=== PATIENT | female | born 1995 | race Caucasian/White ===

== ENCOUNTER 2017-04-18 07:53 | Emergency (ER) | payer OTHER ==
[~2017-04-18] VITALS: Ht 167.6 cm; Wt 50.0 kg
--- NOTE | 2017-04-18 08:01 | EMERGENCY ROOM VISIT NOTE ---
History Report prepared by Richard: eClio Martins Under the Supervision of: Dr. Santi Allred M.D. First contact with patient: 07:54 Stated Complaint: ETOH History of Present Illness This HPI is limited secondary to the intoxication of the patient. The patient is a 21 year old female who presents to the Emergency Room for alcohol and substance intoxication. Per EMS the patient was found on [address] near the [employer] [place] this morning, but she states that she lives near [facility]. EMS state that she admits to doing cocaine, marijuana, and alcohol. She was found unconscious this morning by students who were walking to class. Source of History: EMS Onset: This morning. Position: other ([place]/Intox) Quality: other (Drug/EtOH intox) Review of Systems ROS Limited secondary to intoxication. Current/Historical Medications Scheduled PRN Alprazolam (Xanax), 0.5 MG PO Q6H PRN for Anxiety Allergies Coded Allergies: No Known Allergies (Unverified , 04/18/17) Physical Exam Vital Signs Date Time Temp Pulse Resp B/P (MAP) Pulse Ox O2 Delivery O2 Flow Rate FiO2 04/18/17 16:29 36.7 106 26 118/74 99 04/18/17 16:01 118/74 04/18/17 15:53 106 26 04/18/17 15:23 103 22 04/18/17 15:18 102 23 04/18/17 15:01 101/62 04/18/17 14:48 96 20 04/18/17 14:18 85 18 99 04/18/17 14:13 83 18 99 04/18/17 14:01 98/62 04/18/17 13:43 80 16 98 04/18/17 13:28 100/67 04/18/17 13:27 73 16 100/67 96 Room Air 04/18/17 13:13 83 18 99 04/18/17 12:43 82 18 97 04/18/17 12:41 79 04/18/17 12:16 91/52 04/18/17 12:13 81 18 95 04/18/17 12:08 81 18 91/52 96 04/18/17 11:38 76 18 100 04/18/17 11:33 73 15 100 04/18/17 11:28 92 14 97 04/18/17 11:23 99 15 99 2/15/18 11:13 130 18 04/18/17 11:08 130 19 04/18/17 11:03 131 27 04/18/17 10:58 127 27 04/18/17 10:52 120 18 136/98 98 Room Air 04/18/17 10:49 136/93 04/18/17 09:53 137 22 04/18/17 09:48 133 16 04/18/17 09:43 139 23 04/18/17 09:38 133 15 04/18/17 09:33 143 15 04/18/17 09:28 136 19 04/18/17 09:23 145 16 04/18/17 09:18 142 18 04/18/17 09:13 144 23 04/18/17 09:08 151 19 04/18/17 09:03 155 25 04/18/17 08:58 146 30 04/18/17 08:53 144 17 04/18/17 08:48 147 23 98 04/18/17 08:43 150 18 97 04/18/17 08:38 157 23 96 04/18/17 08:33 161 14 04/18/17 08:28 157 13 97 04/18/17 08:23 151 132/83 98 04/18/17 08:03 97 Room Air 04/18/17 08:03 97 Room Air 04/18/17 08:03 36.7 141 24 134/88 97 Room Air 04/18/17 08:03 142 15 100 04/18/17 08:00 140 04/18/17 08:00 134/88 Physical Exam Vital signs reviewed. General: Odor of EtOH in the breath, disheveled 21-year-old female. No signs of trauma. HEENT: Mild scleral injection bilaterally, PERRLA, neck supple, dry mucous membranes. Cardiovascular: Regular rate and rhythm, no extra sounds. Pulmonary: Clear to auscultation bilaterally, normal work of breathing. Abdomen: Soft, nontender, nondistended, positive bowel sounds. Musculoskeletal: Upper and lower extremities atraumatic, no peripheral edema Skin: Warm, dry, no rash. Atraumatic. Neurologic: Patient is currently nonverbal. Medical Decision & Procedures Laboratory Results 04/18/17 08:38 Test 04/18/17 08:38 04/18/17 10:03 Anion Gap 8.0 mmol/L (3-11) Est Creatinine Clear Calc Drug Dose 82.6 ml/min Estimated GFR () 113.5 Estimated GFR (Non- 97.9 BUN/Creatinine Ratio 11.9 (10-20) Calcium Level 8.5 mg/dl (8.5-10.1) Human Chorionic Gonadotropin, Qual NEG (NEG) Ethyl Alcohol mg/dL 285.2 mg/dl (0-3) Urine Opiates Screen NEG (NEG) Urine Methadone, Qualitative NEG (NEG) Urine Barbiturates NEG (NEG) Urine Phencyclidine (PCP) Level NEG (NEG) Ur Amphetamine/Methamphetamine NEG (NEG) MDMA (Ecstasy) Screen NEG (NEG) Urine Benzodiazepines Screen POS (NEG) Urine Cocaine Metabolite NEG (NEG) Urine Marijuana (THC) NEG (NEG) Labs reviewed by ED physician. Medications Administered Medications (Trade) Dose Ordered Sig/Dhruv Route Start Time Stop Time Status Last Admin Dose Admin Haloperidol Lactate (Haldol Inj) 10 mg NOW STAT IM 04/18/17 10:32 04/18/17 10:34 DC 04/18/17 10:50 10 MG Lorazepam (Ativan Inj) 2 mg NOW STAT IM 04/18/17 10:32 04/18/17 10:34 DC 04/18/17 10:51 2 MG Benztropine Mesylate (Cogentin Inj) 2 mg NOW STAT IM 04/18/17 10:32 04/18/17 10:34 DC 04/18/17 10:50 2 MG ED Course 0800: Past medical records reviewed. The patient was evaluated in room A3. A complete history and physical examination was performed. 1032: Ordered Cogentin 2 mg IM, Lorazepam 2 mg IM, Haldol 10 mg IM. 1500: Patient will be signed out to Dr. Torres at change of shift. Medical Decision Differential diagnosis: Etiologies such as alcohol intoxication, toxicologic, infection, hypoglycemia, electrolyte abnormalities, cardiac sources, intracerebral event, neurologic, as well as others were entertained. This is a 21-year-old female who presents emergency department complaining of alcohol intoxication. Patient was found passed out an apartment hallway that was not her own. The patient admitted to doing cocaine and marijuana and a large amount of liquor. The patient has a high alcohol content and is noncooperative in the emergency department she keeps leaving her room. Due to the very high acuity of patients in the emergency department she is risking a catastrophe. I offered to call this patient's parents however she adamantly refused. As she will not cooperate or behave she was given 10 of Haldol and 2 of Cogentin and 2 of Ativan IM. This resulted in the patient sleeping. I will note that the patient was extremely tachycardic and was not cooperative for this evaluation. I strongly recommended that the patient discuss this visit with her parents. I will also note that the patient tested positive for benzos even though she denies being on any medication. Impression Primary Impression: Alcohol use with intoxication Additional Impression: Benzodiazepine abuse Scribe Attestation The scribe's documentation has been prepared under my direction and personally reviewed by me in its entirety. I confirm that the note above accurately reflects all work, treatment, procedures, and medical decision making performed by me. Departure Information Dispostion Still a Patient (Patient will be signed out to Dr. Torres) Problem Qualifiers
[2017-04-18 08:03] VITALS: O2SAT 97; Ht 167.6 cm; Wt 50.0 kg
[2017-04-18 09:11] LABS: CALCIUM 8.5 mg/dl (8.5-10.1); CREATININE 0.85 mg/dl (0.60-1.20); POTASSIUM 3.8 mmol/L (3.5-5.1)
[2017-04-18] MEDS ORDERED: ALPR-411 PO (09:38)
[2017-04-18] MEDS ORDERED: HALOPERIDOL LACTATE 5 MG/ML 1 ML VIAL IM STA (10:32)
[2017-04-18] MEDS ORDERED: LORAZEPAM 2 MG/ML 1 ML VIAL IM STA (10:32)
[2017-04-18] MEDS ORDERED: BENZTROPINE MESYLATE 1 MG/ML 2 ML AMP IM STA (10:32)
[2017-04-18 16:29] VITALS: BP 118/74; PULSE 106; TEMP 36.7; O2SAT 99
== END 2017-04-18 16:32 | disposition home or self-care (01) ==
LOC: C.EDA 07:57
DX: F10.129 Alcohol abuse with intoxication, unspecified (principal); F13.10 Sedative, hypnotic or anxiolytic abuse, uncomplicated